=== PATIENT | female | born 1935 | race Caucasian/White ===

== ENCOUNTER 2016-09-01 06:20 | Observation (INO) | payer MEDICARE, OTHER ==
[2016-09-01] MEDS ORDERED: Albuterol/Ipratropium 3.0-0.5 MG/3 ML Neb Soln NEB ONE (06:26)
[2016-09-01] MEDS ORDERED: methylPREDNISolone Sodium Succinate 125 MG/2 ML SDV IVPUSH ONE (06:26)
[2016-09-01] MEDS ORDERED: Nitroglycerin 0.4 MG Tab.SL SL PRN (06:26)
--- NOTE | 2016-09-01 06:29 | EDM.PDOC ---
<Shan Goncalves - Last Filed: 09/01/16 06:41> ED HPI GENERAL MEDICAL PROBLEM - General Stated Complaint: PAIN ON SIDE Time Seen by Provider: 09/01/16 06:27 Source of Information: Reports: Patient - History of Present Illness INITIAL COMMENTS - FREE TEXT/NARRATIVE: HISTORY AND PHYSICAL: History of present illness: []Patient presents with left-sided chest pain and rib pain she rates 6 out of 10 nonradiating she has persistent rattly cough is been present over the last 2- 3 days along with shortness of breath. Pain is worsened by movement better at rest I can reproduce pain with light palpation along left ribs. She denies fall or other trauma. she has long smoking history she continues to smoke 8-10 cigarettes per day. There is no association with diaphoresis or radiation to arm neck or jaw. She has slight audible wheeze on exam she is in no distress but appears somewhat short of breath no pursed lip breathing no retractions no tripoding Denies fever nausea vomiting diarrhea constipation headache dizziness or palpitation no bowel or urine symptoms Review of systems: As per history of present illness and below otherwise all systems reviewed and negative. Past medical history: As per history of present illness and as reviewed below otherwise noncontributory. Surgical history: As per history of present illness and as reviewed below otherwise noncontributory. Social history: No reported history of drug or alcohol abuse. Family history: As per history of present illness and as reviewed below otherwise noncontributory. Physical exam: HEENT: Atraumatic, normocephalic, pupils reactive, negative for conjunctival pallor or scleral icterus, mucous membranes moist, throat clear, neck supple, nontender, trachea midline. Lungs: Clear to auscultation, breath sounds equal bilaterally, chest nontender on right tender along left axilla on lower rib margin. Heart: S1S2, regular, negative for clicks, rubs, or JVD. Abdomen: Soft, nondistended, nontender. Negative for masses or hepatosplenomegaly. Negative for costovertebral tenderness. Pelvis: Stable nontender. Genitourinary: Deferred. Rectal: Deferred. Extremities: Atraumatic, negative for cords or calf pain. Neurovascular unremarkable. Neuro: Awake, alert, oriented. Cranial nerves II through XII unremarkable. Cerebellum unremarkable. Motor and sensory unremarkable throughout. Exam nonfocal. Diagnostics: []Lab as below EKG Chest 1 view Therapeutics: []Normal saline TKO Nitroglycerin sublingual 0.43 as needed--patient refuses nitroglycerin Labetalol 10 mg IV Solu-Medrol 125 mg IV DuoNeb Patient refused pain medication Impression: []Left-sided chest pain Hypertensive emergency-230/130 COPD Chronic history of baseline Definitive disposition and diagnosis as appropriate pending reevaluation and review of above. 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) Other OB/BYN History: breast cancer - Infectious Disease History Infectious Disease History: Reports: Chicken Pox, Measles, Mumps Social & Family History - Tobacco Use Smoking Status *Q: Current Every Day Smoker Years of Tobacco use: 60 Packs/Tins Daily: 0.5 - Recreational Drug Use Recreational Drug Use: No Course - Vital Signs Last Recorded V/S: Last Vital Signs Temp 36.3 C 09/01/16 06:25 Pulse 73 09/01/16 07:44 Resp 22 H 09/01/16 07:44 BP 198/49 H 09/01/16 07:44 Pulse Ox 97 09/01/16 07:44 - Orders/Labs/Meds Orders: Active Orders 24 hr Category Date Time Status EKG Documentation Completion [RC] STAT Care 09/01/16 06:33 Active RT Aerosol Therapy [RC] ASDIRECTED Care 09/01/16 06:27 Active Ribs 2V w Chest Lt [CR] Stat Exams 09/01/16 06:42 Taken UA W/MICROSCOPIC [URIN] Stat Lab 09/01/16 07:26 Results Sodium Chloride 0.9% [Normal Saline] 1,000 ml Med 09/01/16 06:30 Active IV STAT Medication Orders Sodium Chloride (Normal Saline) 1,000 mls @ 30 mls/hr IV STAT [facility] Last Admin: 09/01/16 06:50 Dose: 30 mls/hr Labs: Laboratory Tests 09/01/16 09/01/16 09/01/16 Range/Units 06:20 06:20 06:20 WBC 8.45 (4.0-11.0) K/uL RBC 5.22 (4.30-5.90) M/uL Hgb 14.8 (12.0-16.0) g/dL Hct 44.5 (36.0-46.0) % MCV 85.2 (80.0-98.0) fL MCH 28.4 (27.0-32.0) pg MCHC 33.3 (31.0-37.0) g/dL RDW Std Deviation 44.9 (28.0-62.0) fl RDW Coeff of Tania 14 (11.0-15.0) % Plt Count 188 (150-400) K/uL MPV 10.60 (7.40-12.00) fL Neut % (Auto) 67.5 (48.0-80.0) % Lymph % (Auto) 20.5 (16.0-40.0) % Hill % (Auto) 8.4 (0.0-15.0) % Eos % (Auto) 3.0 (0.0-7.0) % Baso % (Auto) 0.6 (0.0-1.5) % Neut # (Auto) 5.7 (1.4-5.7) K/uL Lymph # (Auto) 1.7 (0.6-2.4) K/uL Hill # (Auto) 0.7 (0.0-0.8) K/uL Eos # (Auto) 0.3 (0.0-0.7) K/uL Baso # (Auto) 0.1 (0.0-0.1) K/uL Nucleated RBC % 0.0 /100WBC Nucleated RBCs # 0 K/uL INR 1.01 (0.86-1.11) Sodium 139 (136-146) mmol/L Potassium 4.4 (3.5-5.1) mmol/L Chloride 104 (98-110) mmol/L Carbon Dioxide 24 (21-31) mmol/L BUN 22 (6.0-23.0) mg/dL Creatinine 1.3 (0.6-1.5) mg/dL Est Cr Clr Drug Dosing 22.40 mL/min Estimated GFR (MDRD) 39.3 ml/min Glucose 111 H (60-110) mg/dL Calcium 9.7 (8.8-10.8) mg/dL Total Bilirubin 0.5 (0.1-1.5) mg/dL AST 18 (5-40) IU/L ALT 8 (8-54) IU/L Alkaline Phosphatase 83 (40-150) Creatine Kinase 33 (9-236) IU/L CK-MB (CK-2) 1.2 (0-6.6) ng/ml Troponin I (0.0-0.29) NG/ML B-Natriuretic Peptide (<100) PG/ML Total Protein 8.6 H (6.0-8.0) g/dL Albumin 4.0 (3.4-4.8) g/dL Globulin 4.6 H (2.0-3.5) g/dL Albumin/Globulin Ratio 0.9 L (1.3-2.8) Urine Color Urine Appearance Urine pH (5.0-8.0) Ur Specific [place] (1.001-1.035) Urine Protein (NEGATIVE) mg/dL Urine Glucose (UA) (NEGATIVE) mg/dL Urine Ketones (NEGATIVE) mg/dL Urine Occult Blood (NEGATIVE) Urine Nitrite (NEGATIVE) Urine Bilirubin (NEGATIVE) Urine Urobilinogen (<2.0) EU/dL Ur Leukocyte Esterase (NEGATIVE) 09/01/16 09/01/16 09/01/16 Range/Units 06:20 06:20 07:26 WBC (4.0-11.0) K/uL RBC (4.30-5.90) M/uL Hgb (12.0-16.0) g/dL Hct (36.0-46.0) % MCV (80.0-98.0) fL MCH (27.0-32.0) pg MCHC (31.0-37.0) g/dL RDW Std Deviation (28.0-62.0) fl RDW Coeff of Tania (11.0-15.0) % Plt Count (150-400) K/uL MPV (7.40-12.00) fL Neut % (Auto) (48.0-80.0) % Lymph % (Auto) (16.0-40.0) % Hill % (Auto) (0.0-15.0) % Eos % (Auto) (0.0-7.0) % Baso % (Auto) (0.0-1.5) % Neut # (Auto) (1.4-5.7) K/uL Lymph # (Auto) (0.6-2.4) K/uL Hill # (Auto) (0.0-0.8) K/uL Eos # (Auto) (0.0-0.7) K/uL Baso # (Auto) (0.0-0.1) K/uL Nucleated RBC % /100WBC Nucleated RBCs # K/uL INR (0.86-1.11) Sodium (136-146) mmol/L Potassium (3.5-5.1) mmol/L Chloride (98-110) mmol/L Carbon Dioxide (21-31) mmol/L BUN (6.0-23.0) mg/dL Creatinine (0.6-1.5) mg/dL Est Cr Clr Drug Dosing mL/min Estimated GFR (MDRD) ml/min Glucose (60-110) mg/dL Calcium (8.8-10.8) mg/dL Total Bilirubin (0.1-1.5) mg/dL AST (5-40) IU/L ALT (8-54) IU/L Alkaline Phosphatase (40-150) Creatine Kinase (9-236) IU/L CK-MB (CK-2) (0-6.6) ng/ml Troponin I < 0.10 (0.0-0.29) NG/ML B-Natriuretic Peptide 231 H (<100) PG/ML Total Protein (6.0-8.0) g/dL Albumin (3.4-4.8) g/dL Globulin (2.0-3.5) g/dL Albumin/Globulin Ratio (1.3-2.8) Urine Color YELLOW Urine Appearance SLT CLOUDY Urine pH 6.0 (5.0-8.0) Ur Specific [place] 1.015 (1.001-1.035) Urine Protein NEGATIVE (NEGATIVE) mg/dL Urine Glucose (UA) NEGATIVE (NEGATIVE) mg/dL Urine Ketones NEGATIVE (NEGATIVE) mg/dL Urine Occult Blood TRACE-INTACT (NEGATIVE) Urine Nitrite POSITIVE H (NEGATIVE) Urine Bilirubin NEGATIVE (NEGATIVE) Urine Urobilinogen 0.2 (<2.0) EU/dL Ur Leukocyte Esterase LARGE (NEGATIVE) Meds: Medications Generic Name Dose Route Start Last Admin Trade Name Freq PRN Reason Stop Dose Admin Sodium Chloride 1,000 mls @ 30 mls/hr 09/01/16 06:30 09/01/16 06:50 Normal Saline IV 30 mls/hr STAT [facility] Administration Discontinued Medications Generic Name Dose Route Start Last Admin Trade Name Freq PRN Reason Stop Dose Admin Albuterol/Ipratropium 3 ml 09/01/16 06:26 09/01/16 06:35 Duoneb 3.0-0.5 Mg/3 Ml NEB 09/01/16 06:27 3 ml ONETIME ONE Administration Labetalol HCl 10 mg 09/01/16 06:40 09/01/16 06:50 Normodyne IVPUSH 09/01/16 06:41 10 mg .BOLUS ONE Administration Protocol Methylprednisolone Sodium Succinate 125 mg 09/01/16 06:26 09/01/16 06:40 Solu-Medrol IVPUSH 09/01/16 06:27 125 mg ONETIME ONE Administration Nitroglycerin 0.4 mg 09/01/16 06:26 Nitrostat SL 09/01/16 06:37 Q5M PRN Chest Pain Nitroglycerin Confirm 09/01/16 06:34 09/01/16 06:49 Nitrostat Administered 09/01/16 06:35 Not Given Dose 1.2 mg .ROUTE .STK-MED ONE Departure - Departure Disposition: Refer to Observation Clinical Impression: Chest pain, UTI (urinary tract infection) - Discharge Information <Vikram Reyes - Last Filed: 09/01/16 07:51> ED HPI GENERAL MEDICAL PROBLEM left chest & back area Pain Score (Numeric/FACES): 8 ED ROS GENERAL - Review of Systems Review Of Systems: ROS reveals no pertinent complaints other than HPI. ED EXAM, GENERAL - Physical Exam Exam: See Below (See dictation) Departure - Departure Time of Disposition: 07:50 Condition: Good
[2016-09-01] MEDS ORDERED: Sodium Chloride 0.9% 1,000 ML IV SCH (06:30)
[2016-09-01] MEDS ORDERED: Nitroglycerin 0.4 MG Tab.SL ONE (06:34)
[2016-09-01] MEDS ORDERED: Labetalol 5 MG/ML 5 ML Syringe IVPUSH ONE (06:40)
[2016-09-01] MEDS ORDERED: cefTRIAXone 1 GM in Premix Bag 1 BAG IV ONE (07:51)
[2016-09-01] MEDS ORDERED: Labetalol 100 MG/20 ML MDV IVPUSH ONE (08:54)
[2016-09-01] MEDS ORDERED: Non-Formulary Medication 1 Each (Umeclidinium Brm/Vilanterol Tr [Anoro Ellipta 62.5-25 Mcg INH SCH (09:30)
[2016-09-01] MEDS: Levofloxacin 500 MG Tab PO SCH (09:59)
[2016-09-01] MEDS ORDERED: amLODIPine 5 MG Tab PO SCH (10:15)
[2016-09-01] MEDS: Lisinopril 10 MG Tab PO SCH (10:23)
--- NOTE | 2016-09-01 11:52 | PCM.HP ---
H&P History of Present Illness - General Date of Service: 09/01/16 Source of Information: Patient, Family - History of Present Illness Initial Comments - Free Text/Narative: 81 yo female with copd admitted to r/o ACS. She has been coughing for two days and c/o left lower side chest pain. She denies sob, n/v/d, abdominal pain, fever , chills, dysuria, frequency or urgency. In the ED, she was given solumedrol, rocephin. Her blood pressure was elevated, she was given labetolol. She does not have history of HTN. She smokes half pack of cigarettes. left chest & back area Pain Score (Numeric/FACES): 8 - Related Data Allergies/Adverse Reactions: Allergies Allergy/AdvReac Type Severity Reaction Status Date / Time ibuprofen [From Motrin] Allergy Severe Cannot Verified 09/01/16 06:45 Remember nitroglycerin Allergy Shortness Verified 09/01/16 06:45 of Breath Home Medications: Home Meds Aspirin [Ecotrin] 325 mg PO ASDIRECTED PRN 12/21/13 [History] Doxycycline [Vibramycin] 100 mg PO DAILY #14 tab 12/21/13 [Rx] Umeclidinium Brm/Vilanterol Tr [Anoro Ellipta 62.5-25 Mcg INH] 1 puff INH BID [History] Past Medical History - Past Health History Medical/Surgical History: Denies Medical/Surgical History HEENT History: Reports: Cataract Cardiovascular History: Reports: None Respiratory History: Reports: COPD Gastrointestinal History: Reports: None Genitourinary History: Reports: 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) Other OB/BYN History: breast cancer Musculoskeletal History: Reports: None Neurological History: Reports: None Psychiatric History: Reports: None Endocrine/Metabolic History: Reports: None Hematologic History: Reports: None Immunologic History: Reports: None Oncologic (Cancer) History: Reports: Breast Dermatologic History: Reports: Other (See Below) Other Dermatologic History: skin lession @ right lower breast - Infectious Disease History Infectious Disease History: Reports: Chicken Pox, Measles, Mumps - Past Surgical History HEENT Surgical History: Reports: Cataract Surgery GI Surgical History: Reports: Appendectomy Social & Family History - Family History Family Medical History: Noncontributory - Tobacco Use Smoking Status *Q: Current Every Day Smoker Years of Tobacco use: 68 Packs/Tins Daily: 8 Used Tobacco, but Quit: No Second Hand Smoke Exposure: No - Caffeine Use Caffeine Use: Reports: Tea - Recreational Drug Use Recreational Drug Use: No H&P Review of Systems - Review of Systems: Review Of Systems: See Below General: Reports: No Symptoms HEENT: Reports: No Symptoms Pulmonary: Reports: Pleuritic Chest Pain, Cough. Denies: Shortness of Breath, Wheezing, Sputum Cardiovascular: Reports: No Symptoms Gastrointestinal: Reports: No Symptoms Genitourinary: Reports: No Symptoms Musculoskeletal: Reports: No Symptoms Skin: Reports: No Symptoms Psychiatric: Reports: No Symptoms Neurological: Reports: No Symptoms Hematologic/Lymphatic: Reports: No Symptoms Immunologic: Reports: No Symptoms Exam - Exam Exam: See Below - Vital Signs Vital Signs: Last Vital Signs Temp 97.4 F 09/01/16 08:45 Pulse 69 09/01/16 09:04 Resp 20 09/01/16 08:45 BP 213/86 H 09/01/16 10:23 Pulse Ox 95 09/01/16 08:45 Weight: 41.549 kg - Exam Quality Assessment: Supplemental Oxygen General: Alert, Oriented HEENT: Conjunctiva Clear, EOMI Neck: Supple, Trachea Midline Lungs: Normal Respiratory Effort, Decreased Breath Sounds. No: Crackles, Rhonchi, Wheezing Cardiovascular: Regular Rate, Regular Rhythm Abdomen: Normal Bowel Sounds, Soft, Pelvis Stable Back Exam: Normal Inspection Extremities: Normal Inspection Peripheral Pulses: 2+: Dorsalis Pedis (L), Dorsalis Pedis (R) Skin: Warm, Dry Neurological: Cranial Nerves Intact Neuro Extensive - Mental Status: Alert, Oriented x3, Normal Mood/Affect, Normal Cognition, Memory Intact - Patient Data Result Diagrams: 09/01/16 06:20 09/01/16 06:20 *Q Meaningful Use (ADM) - VTE *Q VTE Criteria *Q: - Stroke *Q Stroke Criteria *Q: - AMI *Q AMI Criteria *Q: Problem List Initiated/Reviewed/Updated: Yes Orders Last 24hrs: Active Orders 24 hr Category Date Time Status Telemetry Monitoring [Cardiac Monitoring] [RC] Q8H Care 09/01/16 08:10 Active TROPONIN I [CHEM] Q6H Lab 09/01/16 12:20 Ordered TROPONIN I [CHEM] Q6H Lab 09/01/16 18:20 Ordered Aspirin Med 09/02/16 09:00 Active 81 mg PO DAILY Levofloxacin [Levaquin] Med 09/01/16 09:30 Active 500 mg PO Q24H Lisinopril [Prinivil] Med 09/01/16 10:15 Active 10 mg PO DAILY Patient's Own Medication [Ptom] Med 09/01/16 09:30 Active 1 each INH BID Medication Orders Aspirin (Aspirin) 81 mg PO DAILY [facility] Sodium Chloride (Normal Saline) 1,000 mls @ 30 mls/hr IV STAT [facility] Last Admin: 09/01/16 06:50 Dose: 30 mls/hr Levofloxacin (Levaquin) 500 mg PO Q24H [facility] Last Admin: 09/01/16 09:59 Dose: 500 mg Lisinopril (Prinivil) 10 mg PO DAILY [facility] Last Admin: 09/01/16 10:23 Dose: 10 mg Umeclidinium Brm/Vilanterol Tr [Anoro Ellipta 62.5-25 Mcg 1 each INH BID [facility] Last Admin: 09/01/16 10:00 Dose: Not Given Assessment/Plan Comment:: 81 yo female admitted for r/o ACS trend troponins Rib Xray: old left 8 th rib fracture Blood pressure control: IVP labetolol given once and strat lisinopril, cont asa UTI: ua pos for wbc, nitrates start levaquin urine cultures pending IVF on hold until blood pressure control.
--- NOTE | 2016-09-01 16:25 | CR ---
EXAM DATE: 09/01/16 PATIENT'S AGE: 81 Patient: LEEANNA MIN Facility: [place], [place] Site . Site : 1935 Study: XRay Chest Left RIBS [id number]/6/2017 7:20:48 AM Ordering Physician: Pete Torrez Final Report: INDICATION: Pain on left side. Cough and shortness of breath. Technique: PA chest and 3 views left ribs. Findings: Marked hyperinflation of both lungs consistent with COPD. Moderate ill-defined and nodular opacities in the mid and upper right lung and both lung apices likely fibrotic. Mild tortuosity of the thoracic aorta which is moderately calcified. Heart size normal. No focal dense infiltrate or consolidation in either lung. No obvious acute left-sided rib fractures. Mild deformity of the left 8th rib anterolaterally may be related to prior trauma. Remainder negative. Dictated by Angel Shea MD @ Sep 01 2016 7:36AM (Electronic Signature) Report Signed by Proxy. YOSI
[2016-09-01] MEDS ORDERED: Acetaminophen 325 MG Tab PO PRN (18:28)
[2016-09-01] MEDS: Acetaminophen 325 MG Tab PO PRN (19:17)
[2016-09-01] MEDS ORDERED: Anastrozole 1 MG Tab PO SCH (21:00)
[2016-09-01] MEDS: Metoprolol Tartrate 25 MG Tab PO SCH (21:39)
[2016-09-02] MEDS: Acetaminophen 325 MG Tab PO PRN ×2 (03:48→12:38)
[2016-09-02] MEDS ORDERED: Morphine 2 MG/ML Syringe IVPUSH ONE (08:05)
[2016-09-02] MEDS: Lisinopril 10 MG Tab PO SCH (08:28)
[2016-09-02] MEDS: Metoprolol Tartrate 25 MG Tab PO SCH (08:29)
[2016-09-02] MEDS: Levofloxacin 500 MG Tab PO SCH (08:31)
[2016-09-02] MEDS ORDERED: Aspirin 81 MG Tab.Chew PO SCH (09:00)
[2016-09-02] MEDS ORDERED: Albuterol/Ipratropium 3.0-0.5 MG/3 ML Neb Soln NEB ONE (09:30)
--- NOTE | 2016-09-02 12:07 | PCM.PN ---
- General Info Date of Service: 09/02/16 - Review of Systems General: Reports: Fatigue HEENT: Reports: no symptoms Pulmonary: Reports: shortness of breath, pleuritic chest pain, cough. Denies: sputum Cardiovascular: Reports: No Symptoms Gastrointestinal: Reports: No symptoms Genitourinary: Reports: no symptoms Musculoskeletal: Reports: back pain Skin: Reports: no symptoms Neurological: Reports: No Symptoms Psychiatric: Reports: no symptoms - Patient Data Vitals - most recent: Last Vital Signs Temp 97.0 F 09/02/16 08:00 Pulse 62 09/02/16 08:29 Resp 16 09/02/16 08:00 BP 129/61 09/02/16 08:29 Pulse Ox 97 09/02/16 08:00 Weight - most recent: 41.549 kg I&O - last 24 hours: Intake & Output 09/01/16 09/02/16 09/02/16 22:59 06:59 14:59 Intake Total 600 380 Output Total 400 550 Balance 200 -170 Lab Results last 24 hrs: Laboratory Results - last 24 hr 09/01/16 09/01/16 09/02/16 Range/Units 12:24 19:00 08:13 WBC 12.58 H (4.0-11.0) K/uL RBC 4.70 (4.30-5.90) M/uL Hgb 13.0 (12.0-16.0) g/dL Hct 40.1 (36.0-46.0) % MCV 85.3 (80.0-98.0) fL MCH 27.7 (27.0-32.0) pg MCHC 32.4 (31.0-37.0) g/dL RDW Std Deviation 44.5 (28.0-62.0) fl RDW Coeff of Tania 14 (11.0-15.0) % Plt Count 195 (150-400) K/uL MPV 10.80 (7.40-12.00) fL Neut % (Auto) 81.4 H (48.0-80.0) % Lymph % (Auto) 10.9 L (16.0-40.0) % Irion % (Auto) 7.2 (0.0-15.0) % Eos % (Auto) 0.3 (0.0-7.0) % Baso % (Auto) 0.2 (0.0-1.5) % Neut # (Auto) 10.2 H (1.4-5.7) K/uL Lymph # (Auto) 1.4 (0.6-2.4) K/uL Irion # (Auto) 0.9 H (0.0-0.8) K/uL Eos # (Auto) 0.0 (0.0-0.7) K/uL Baso # (Auto) 0.0 (0.0-0.1) K/uL Nucleated RBC % 0.0 /100WBC Nucleated RBCs # 0 K/uL Sodium (136-146) mmol/L Potassium (3.5-5.1) mmol/L Chloride (98-110) mmol/L Carbon Dioxide (21-31) mmol/L BUN (6.0-23.0) mg/dL Creatinine (0.6-1.5) mg/dL Est Cr Clr Drug Dosing mL/min Estimated GFR (MDRD) ml/min Glucose (60-110) mg/dL Calcium (8.8-10.8) mg/dL Troponin I < 0.10 < 0.10 (0.0-0.29) NG/ML 09/02/16 Range/Units 08:13 WBC (4.0-11.0) K/uL RBC (4.30-5.90) M/uL Hgb (12.0-16.0) g/dL Hct (36.0-46.0) % MCV (80.0-98.0) fL MCH (27.0-32.0) pg MCHC (31.0-37.0) g/dL RDW Std Deviation (28.0-62.0) fl RDW Coeff of Tania (11.0-15.0) % Plt Count (150-400) K/uL MPV (7.40-12.00) fL Neut % (Auto) (48.0-80.0) % Lymph % (Auto) (16.0-40.0) % Irion % (Auto) (0.0-15.0) % Eos % (Auto) (0.0-7.0) % Baso % (Auto) (0.0-1.5) % Neut # (Auto) (1.4-5.7) K/uL Lymph # (Auto) (0.6-2.4) K/uL Irion # (Auto) (0.0-0.8) K/uL Eos # (Auto) (0.0-0.7) K/uL Baso # (Auto) (0.0-0.1) K/uL Nucleated RBC % /100WBC Nucleated RBCs # K/uL Sodium 136 (136-146) mmol/L Potassium 4.3 (3.5-5.1) mmol/L Chloride 102 (98-110) mmol/L Carbon Dioxide 24 (21-31) mmol/L BUN 25 H (6.0-23.0) mg/dL Creatinine 1.2 (0.6-1.5) mg/dL Est Cr Clr Drug Dosing 24.12 mL/min Estimated GFR (MDRD) 43.1 ml/min Glucose 99 (60-110) mg/dL Calcium 9.2 (8.8-10.8) mg/dL Troponin I (0.0-0.29) NG/ML Med Orders - Current: Current Medications Acetaminophen (Tylenol) 650 mg PO Q6H PRN PRN Reason: Pain Last Admin: 09/02/16 03:48 Dose: 650 mg Anastrozole (Arimidex) 1 mg PO [facility] Last Admin: 09/01/16 20:41 Dose: 1 mg Aspirin (Aspirin) 81 mg PO DAILY [facility] Last Admin: 09/02/16 08:29 Dose: 81 mg Levofloxacin (Levaquin) 500 mg PO Q24H [facility] Last Admin: 09/02/16 08:31 Dose: 500 mg Lisinopril (Prinivil) 10 mg PO DAILY [facility] Last Admin: 09/02/16 08:28 Dose: 10 mg Metoprolol Tartrate (Lopressor) 25 mg PO DAILY [facility] Last Admin: 09/02/16 08:29 Dose: 25 mg Umeclidinium Brm/Vilanterol Tr [Anoro Ellipta 62.5-25 Mcg 1 each INH BID [facility] Last Admin: 09/02/16 10:31 Dose: Not Given Discontinued Medications Acetaminophen (Tylenol) 650 mg PO NOW PRN PRN Reason: Pain Albuterol/Ipratropium (Duoneb 3.0-0.5 Mg/3 Ml) 3 ml NEB ONETIME ONE Stop: 09/01/16 06:27 Last Admin: 09/01/16 06:35 Dose: 3 ml Albuterol/Ipratropium (Duoneb 3.0-0.5 Mg/3 Ml) 3 ml NEB ONETIME ONE Stop: 09/02/16 09:31 Last Admin: 09/02/16 09:47 Dose: 3 ml Amlodipine Besylate (Norvasc) 5 mg PO DAILY [facility] Sodium Chloride (Normal Saline) 1,000 mls @ 30 mls/hr IV STAT [facility] Last Admin: 09/01/16 06:50 Dose: 30 mls/hr Ceftriaxone Sodium/Dextrose 1 (gm/ Premix) 50 mls @ 100 mls/hr IV ONETIME ONE Stop: 09/01/16 08:20 Last Admin: 09/01/16 07:55 Dose: 100 mls/hr Labetalol HCl (Normodyne) 10 mg IVPUSH .BOLUS ONE PRN Reason: Protocol Stop: 09/01/16 06:41 Last Admin: 09/01/16 06:50 Dose: 10 mg Labetalol HCl (Normodyne) 10 mg IVPUSH ONETIME ONE PRN Reason: Protocol Stop: 09/01/16 08:55 Last Admin: 09/01/16 09:04 Dose: 10 mg Methylprednisolone Sodium Succinate (Solu-Medrol) 125 mg IVPUSH ONETIME ONE Stop: 09/01/16 06:27 Last Admin: 09/01/16 06:40 Dose: 125 mg Morphine Sulfate (Morphine) 1 mg IVPUSH ONETIME ONE Stop: 09/02/16 08:06 Last Admin: 09/02/16 08:24 Dose: 1 mg Nitroglycerin (Nitrostat) 0.4 mg SL Q5M PRN PRN Reason: Chest Pain Stop: 09/01/16 06:37 Nitroglycerin (Nitrostat) Confirm Administered Dose 1.2 mg .ROUTE .STK-MED ONE Stop: 09/01/16 06:35 Last Admin: 09/01/16 06:49 Dose: Not Given Non-Formulary Medication (Umeclidinium Brm/Vilanterol Tr [Anoro Ellipta 62.5-25 Mcg Inh]) 1 puff INH BID [facility] - Exam Quality Assessment: supplemental oxygen General: alert, oriented HEENT: Pupils equal, Pupils reactive, EOMI Neck: supple, trachea midline Lungs: Clear to auscultation, Decreased breath sounds Cardiovascular: Regular Rate, Regular Rhythm Abdomen: bowel sounds present, soft, no tenderness Back Exam: Decreased Range of Motion, Muscle Spasm, Paraspinal Tenderness Extremities: no edema Skin: warm, dry, intact Neurological: no new focal deficit Psy/Mental Status: alert, normal affect, normal mood - Problem List Review Problem List Initiated/Reviewed/Updated: Yes - My Orders Last 24 Hours: My Active Orders 09/01/16 19:03 Acetaminophen [Tylenol] 650 mg PO Q6H PRN 09/01/16 21:00 Anastrozole [Arimidex] 1 mg PO 199909/01/16 Dinner Regular Diet [DIET] 09/02/16 09:00 Aspirin 81 mg PO DAILY 09/02/16 09:31 RT Aerosol Therapy [RC] ASDIRECTED 09/02/16 09:32 CXR [Chest 1V Frontal] [CR] Routine Code Status [Resuscitation Status] Routine 09/02/16 11:30 TROPONIN I [CHEM] Routine - Plan Plan:: 81 yo female admitted for r/o ACS trend troponins Rib Xray: old left 8 th rib fracture Blood pressure control: IVP labetolol given once and strat lisinopril, cont asa UTI: ua pos for wbc, nitrates start levaquin urine cultures pending IVF on hold until blood pressure control.
[2016-09-02 13:32] VITALS: BP 181/67
--- NOTE | 2016-09-02 17:12 | CR ---
EXAM DATE: 09/01/16 PATIENT'S AGE: 81 Patient: LEEANNA MIN Facility: [place], [place] Site . Site : 1935 Study: XRay Chest [id number]/7/[id number] 10:11:24 AM Ordering Physician: Charlie Hernandez Final Report: Indication: Chest pain. Technique: Portable AP image of the chest. Comparison: The rib x-rays performed yesterday. Findings: No significant change. Fibrosis in both lungs, most notably in the apices. Lungs hyperinflated. No acute infiltrate. No pleural effusion. Heart size and pulmonary vasculature within normal limits. Impression: No significant change. Hyperinflated lungs with fibrosis. No acute disease. Dictated by Kwaku Bazan MD @ Sep 02 2016 4:53PM (Electronic Signature) Report Signed by Proxy. [facility] HEALTHIsabel
--- NOTE | 2016-09-03 23:38 | PCM.DCSUM1 ---
Discharge Summary - Hospital Course Free Text/Narrative:: 81-year-old female with history of COPD admitted for rule out acute coronary syndrome. She had left-sided chest pain for 2 days mainly cough with clear sputum. In the emergency room she was given Solu-Medrol. She is a smoker half pack a day. She did not have nausea, vomiting, diaphoresis, palpitations, radiation of the chest pain. Her EKG did not show any acute ST changes. Her chest x-ray showed old left eighth rib fracture and hyperinflation. Her UA was positive for UTI and urine culture are is Escherichia coli sensitive to Levaquin.. Her BNP was 231. Her CBC and BMP were unremarkable. During hospitalization she was noted to have elevated blood pressure. she was given labetalol x1. She also was treated with Levaquin, aspirin, DuoNeb, lisinopril. She was discharged with Levaquin, aspirin, DuoNeb and nebulizer which seems to be helping her with coughing increasing her saturations 92% to 97%. Her left- sided rib pain was not controlled with Tylenol. She was given morphine when necessary. He was given short-term of [place] and her daughter lives with her we' ll watch her or falls or confusion. She is to followup with Dr. Polk PCP and Dr. Lundberg who is managing her breast cancer and lung nodules. - Discharge Data Discharge Date: 09/02/16 Discharge Disposition: Home, Self-Care 01 Condition: Good - Patient Instructions Diet: Heart Healthy Diet Activity: As Tolerated Driving: Do Not Drive Showering/Bathing: May Shower Notify Provider of: Fever, Increased Pain, Swelling and Redness, Nausea and/or Vomiting - Discharge Plan Prescriptions/Med Rec: Albuterol/Ipratropium [DuoNeb 3.0-0.5 MG/3 ML] 3 ml NEB Q4HRRT #30 neb Hydrocodone/Acetaminophen [[place] 5-325] 1 tab PO Q4H PRN #10 tablet PRN Reason: Pain Levofloxacin [Levaquin] 500 mg PO Q24H #6 tablet Lisinopril [Prinivil] 10 mg PO DAILY #30 tablet Metoprolol Tartrate [Lopressor] 25 mg PO DAILY #30 tablet Home Medications: Home Meds Aspirin [Ecotrin] 325 mg PO ASDIRECTED PRN 12/21/13 [History] Albuterol [Proventil HFA] 2 inh IH Q4H PRN 09/01/16 [History] Umeclidinium Brm/Vilanterol Tr [Anoro Ellipta 62.5-25 Mcg INH] 1 puff INH BID [History] Umeclidinium Wasta [Incruse Ellipta] 62.5 mcg IH DAILY 09/01/16 [History] Albuterol/Ipratropium [DuoNeb 3.0-0.5 MG/3 ML] 3 ml NEB Q4HRRT #30 neb 09/02/16 [Rx] Anastrozole [Arimidex] 1 mg PO 2000 tablet 09/02/16 [Rx] Aspirin 81 mg PO DAILY tab.chew 09/02/16 [Rx] Hydrocodone/Acetaminophen [[place] 5-325] 1 tab PO Q4H PRN #10 tablet 09/02/16 [Rx ] Levofloxacin [Levaquin] 500 mg PO Q24H #6 tablet 09/02/16 [Rx] Lisinopril [Prinivil] 10 mg PO DAILY #30 tablet 09/02/16 [Rx] Metoprolol Tartrate [Lopressor] 25 mg PO DAILY #30 tablet 09/02/16 [Rx] Patient Handouts: Acetaminophen; Hydrocodone tablets or capsules, Metoprolol tablets, Acute Bronchitis, [id number], Nonspecific Chest Pain, [id number], Lisinopril tablets, Levofloxacin tablets, Albuterol; Ipratropium inhalation aerosol Referrals: [facility] [Outside] Vamshi Polk MD [Primary Care Provider] - 09/12/16 12:45 pm - General Info Date of Service: 09/02/16 Functional Status: Reports: pain controlled, tolerating diet - Review of Systems General: Reports: No Symptoms HEENT: Reports: no symptoms Pulmonary: Reports: pleuritic chest pain Cardiovascular: Reports: No Symptoms Gastrointestinal: Reports: No symptoms Genitourinary: Reports: no symptoms Musculoskeletal: Reports: no symptoms Skin: Reports: no symptoms Neurological: Reports: No Symptoms Psychiatric: Reports: no symptoms - Patient Data Vitals - Most Recent: Last Vital Signs Temp 98.3 F 09/02/16 12:00 Pulse 58 L 09/02/16 12:00 Resp 20 09/02/16 12:00 BP 181/67 H 09/02/16 12:00 Pulse Ox 94 L 09/02/16 12:00 Weight - Most Recent: 41.549 kg Med Orders - Current: Current Medications Discontinued Medications Acetaminophen (Tylenol) 650 mg PO NOW PRN PRN Reason: Pain Acetaminophen (Tylenol) 650 mg PO Q6H PRN PRN Reason: Pain Last Admin: 09/02/16 12:38 Dose: 650 mg Albuterol/Ipratropium (Duoneb 3.0-0.5 Mg/3 Ml) 3 ml NEB ONETIME ONE Stop: 09/01/16 06:27 Last Admin: 09/01/16 06:35 Dose: 3 ml Albuterol/Ipratropium (Duoneb 3.0-0.5 Mg/3 Ml) 3 ml NEB ONETIME ONE Stop: 09/02/16 09:31 Last Admin: 09/02/16 09:47 Dose: 3 ml Amlodipine Besylate (Norvasc) 5 mg PO DAILY [facility] Anastrozole (Arimidex) 1 mg PO 1999 [facility] Last Admin: 09/01/16 20:41 Dose: 1 mg Aspirin (Aspirin) 81 mg PO DAILY [facility] Last Admin: 09/02/16 08:29 Dose: 81 mg Sodium Chloride (Normal Saline) 1,000 mls @ 30 mls/hr IV STAT [facility] Last Admin: 09/01/16 06:50 Dose: 30 mls/hr Ceftriaxone Sodium/Dextrose 1 (gm/ Premix) 50 mls @ 100 mls/hr IV ONETIME ONE Stop: 09/01/16 08:20 Last Admin: 09/01/16 07:55 Dose: 100 mls/hr Labetalol HCl (Normodyne) 10 mg IVPUSH .BOLUS ONE PRN Reason: Protocol Stop: 09/01/16 06:41 Last Admin: 09/01/16 06:50 Dose: 10 mg Labetalol HCl (Normodyne) 10 mg IVPUSH ONETIME ONE PRN Reason: Protocol Stop: 09/01/16 08:55 Last Admin: 09/01/16 09:04 Dose: 10 mg Levofloxacin (Levaquin) 500 mg PO Q24H [facility] Last Admin: 09/02/16 08:31 Dose: 500 mg Lisinopril (Prinivil) 10 mg PO DAILY [facility] Last Admin: 09/02/16 08:28 Dose: 10 mg Methylprednisolone Sodium Succinate (Solu-Medrol) 125 mg IVPUSH ONETIME ONE Stop: 09/01/16 06:27 Last Admin: 09/01/16 06:40 Dose: 125 mg Metoprolol Tartrate (Lopressor) 25 mg PO DAILY [facility] Last Admin: 09/02/16 08:29 Dose: 25 mg Morphine Sulfate (Morphine) 1 mg IVPUSH ONETIME ONE Stop: 09/02/16 08:06 Last Admin: 09/02/16 08:24 Dose: 1 mg Nitroglycerin (Nitrostat) 0.4 mg SL Q5M PRN PRN Reason: Chest Pain Stop: 09/01/16 06:37 Nitroglycerin (Nitrostat) Confirm Administered Dose 1.2 mg .ROUTE .STK-MED ONE Stop: 09/01/16 06:35 Last Admin: 09/01/16 06:49 Dose: Not Given Non-Formulary Medication (Umeclidinium Brm/Vilanterol Tr [Anoro Ellipta 62.5-25 Mcg Inh]) 1 puff INH BID [facility] Umeclidinium Brm/Vilanterol Tr [Anoro Ellipta 62.5-25 Mcg 1 each INH BID [facility] Last Admin: 09/02/16 10:31 Dose: Not Given - Exam General: Reports: alert, oriented HEENT: Reports: Pupils equal, EOMI Neck: Reports: supple, trachea midline Lungs: Reports: Decreased breath sounds, Other (left sided pleuritic chest pain. ) Cardiovascular: Reports: Regular Rate, Regular Rhythm Abdomen: Reports: bowel sounds present, soft, no tenderness, no distension Back Exam: Reports: Normal Inspection, Other (Kyphosis) Extremities: Reports: no edema Skin: Reports: warm, dry, intact Neurological: Reports: no new focal deficit Psy/Mental Status: Reports: alert, normal affect, normal mood *Q Meaningful Use (DIS) - VTE *Q VTE Criteria *Q: - Stroke *Q Stroke Criteria *Q: - AMI *Q AMI Criteria *Q:
== END 2016-09-02 15:15 | disposition home or self-care (01) ==
LOC: MW.ED 06:20 → MW.MS 08:11
PROVIDERS: ADMIT Internal Medicine; ATTEND Internal Medicine
DX: S22.32XA Fracture of one rib, left side, initial encounter for closed fracture (principal); N39.0 Urinary tract infection, site not specified; B96.20 Unspecified Escherichia coli [E. coli] as the cause of diseases classified elsewhere; R05 Cough; F17.210 Nicotine dependence, cigarettes, uncomplicated; J44.9 Chronic obstructive pulmonary disease, unspecified; Z88.6 Allergy status to analgesic agent; Z88.8 Allergy status to other drugs, medicaments and biological substances; Z79.899 Other long term (current) drug therapy; Z85.3 Personal history of malignant neoplasm of breast; Z90.49 Acquired absence of other specified parts of digestive tract; Z98.890 Other specified postprocedural states
CPT/HCPCS: 36415; 71010; 71101; 80048; 80053; 81001; 82550; 82553; 83880; 84484; 85025; 85610; 87086; 87088; 87186; 93005; 94640; 96361; 96365; 96375; 96376; 99285; A9270; G0378; J0696; J2270; J2930; J7040; 99283